=== PATIENT | female | born 1990 | race Caucasian/White ===

== ENCOUNTER 2023-09-19 10:32 | Emergency (ER) | payer OTHER, SELFPAY ==
[2023-09-19 10:38] VITALS: BP 121/71
[2023-09-19 10:58] VITALS: BMI 25.8
--- NOTE | 2023-09-19 11:00 | ED.GENMED ---
History of Present Illness
General
Chief Complaint: Problems
Source: patient
Exam Limitations: none
Time Seen by Provider: 09/19/23 10:46
Travel History
Have you had any contact with someone who has COVID-19?: No
Do you have any symptoms of coronavirus? Fever > 100 degrees, chills, cough, shortness of breath, sore throat, loss of taste or smell, muscle aches, or headache?: No
History of Present Illness
History of Present Illness:
See MDM
Past History
Past History
ED Past Medical History: None
ED Past Surgical History: None
Social History
Tobacco: Non-smoker
Alcohol: None
Phy Exam
Physical Exam
Physical Exam:
See MDM
Course
Orders/Labs/Results
Orders:
Orders
09/19/23 10:47
1st Trimester US [US 1st Trimester] Urgent
Comment:
Reason For Exam: vaginal spotting
09/19/23 10:56
Beta HCG Quantitative Urgent
Is this a screen?: No
Complete Blood Count/With Diff Urgent
Comprehensive Metabolic Panel Urgent
Urinalysis Reflex To Culture Urgent
Date Specimen was Collected: 09/19/23
Time Specimen was Collected: 10:52
Abnormal Lab Results
09/19/23
10:56
RBC 3.89 L 10^6/uL
(4.20-5.40)
Hct 34.3 L %
(37.0-47.0)
MCH 32.1 H pg
(27.0-31.0)
MPV 10.5 H fL
(7.4-10.4)
Creatinine 0.5 L mg/dL
(0.6-1.0)
09/19/23 10:56
01/20/24 10:56
Vital Signs
Initial and Last Documented VS:
Initial Vital Signs
Temp Pulse Resp BP Pulse Ox
99.8 F 81 18 121/71 99
09/19/23 10:38 09/19/23 10:38 09/19/23 10:38 09/19/23 10:38 09/19/23 10:38
Last Documented Vital Signs
Temp Pulse Resp BP Pulse Ox
99.8 F 81 18 103/62 100
09/19/23 10:38 09/19/23 10:38 09/19/23 10:38 09/19/23 11:04 09/19/23 11:15
Information
Weeks gestation: Weeks: (5)
Location: Location: ([facility])
MDM/Problems Addressed
Differential Diagnosis Includes:
HPI and MDM Narrative:
33-year-old female G1, P0 at approximately 7 weeks by last menstrual period is presenting with vaginal spotting. She noticed bright red blood when she wiped. Patient states her blood type is A+. She has OB follow-up in few weeks. She is
currently on prenatals.
We discussed early gestation and likely a negative workup but discussed the possibilities of ectopic versus early versus miscarriage.
Physical exam
General: Well appearing and non-toxic
HEENT: protecting airway
Neck: appears supple
CV: No evidence of cyanosis
Resp: No accessory muscle use
Abd: Non-distended. Soft and nontender
Extremities: No deformities
Neuro: alert
Psych: Normal affect
Skin: Intact
Problems Addressed including Acute and Chronic Conditions affecting care:
1. Vaginal bleeding in early
Acuity: acute
Prognosis: stable
Details: Will obtain beta hCG quantitative in addition to previously ultrasound
Updates
Ultrasound confirms live [facility]. Discussed return precautions and follow-up with OB
Differential Diagnosis (but not limited to): Ectopic, early , miscarriage
Testing considered: Type and screen the patient states she is A +
Drug therapy (if applicable): OTC meds, please see d/c instruction regarding Rx drugs
Amount and/or Complexity of Data Reviewed
Clinical info obtained from: Patient
External data reviewed: N/A
Labs I independently reviewed (but not limited to): Beta quant
Radiology: Ultrasound report reviewed
Pulse Ox: not hypoxic
EKG independently reviewed: N/A
Bobbin Doffer: N/A
Critical Care: N/A
Risk of Complication:
Social Determinants of health: Good social support
Discussed with other providers: N/A
Escalation of Care includes Admit/Obs: After being observed in the Emergency Department, pt stable for discharge.
Occasional wrong word or 'sound a like' substitutions may have occurred due to the inherent limitations of voice recognition software. Read the chart carefully and recognize, using context, where substitutions have occurred.
*Critical Care Note
Total Time (30-74mins, 75-104mins- exclusive of procedures): Not Applicable
ED Attending Note
-
Portions of this chart may have been created with voice recognition software.� Occasional wrong word or��sound alike� substitutions may have occurred due to the inherent limitations of voice recognition software.
Discharge Plan
Departure
Patient Disposition: Home (Routine Discharge)
Date of Disposition: 09/19/23
Time of Disposition: 13:39
Patient with high blood pressure during this ER visit?: No
Discharge Problem:
Spotting during in first trimester
Instructions: symptoms
Referrals:
Zeferino Ricardo PA-C [Family Provider] -
Activity Restrictions/Additional Instructions:
Please return for any worsening symptoms.
You may return at any time if you have further concerns.
Please follow up with your OB.
The baby is measuring 5 weeks and 4 days.
Thank you for choosing [facility].
Interventions
Interventions:
*General Assessment Last Done: 09/19/23 10:38
ED- Fall Risk Assessment Last Done: 09/19/23 11:03
*ED COVID-19 Vaccine History Last Done: 09/19/23 10:38
ED-Female Genitourinary Assessment Last Done: 09/19/23 11:03
[2023-09-19 11:04] VITALS: BP 103/62
[2023-09-19 11:12] LABS: % Basophils 0.3 % (0-2); % Eosinophils 1.6 % (0-6); % Immature Granulocytes 0.3 % (0-0.5); % Lymphocytes 24.6 % (20.5-51.1); % Monocytes 4.8 % (1.7-9.3); % Neutrophils 68.4 % (42.2-75.2); Absolute Eosinophils 0.1 10^3/uL (0-0.7); Absolute Lymphocytes 1.7 10^3/uL (1.2-3.4); Absolute Monocytes 0.3 10^3/uL (0.1-0.6); Absolute Neutrophils 4.7 10^3/uL (1.4-6.5); Hematocrit 34.3 % (37.0-47.0); Hemoglobin 12.5 g/dL (12.0-16.0); Mean Corp Hgb Conc. 36.4 g/dL (33.0-37.0); Mean Corpuscular Hgb 32.1 pg (27.0-31.0); Mean Corpuscular Volume 88.2 fL (81.0-99.0); Mean Platelet Volume 10.5 fL (7.4-10.4); Nucleated Red Blood Cells % 0 %; Platelet Count 240 10^3/uL (130-400); Red Blood Cell Count 3.89 10^6/uL (4.20-5.40); Red Cell Dist. Width 12.5 % (11.5-14.5); White Blood Cell Count 6.8 10^3/uL (4.8-10.8)
[2023-09-19 11:33] LABS: ALT (SGPT) 18 U/L (0-35); AST (SGOT) 18 U/L (14-36); Albumin 4.6 g/dl (3.5-5.0); Alkaline Phosphatase 50 U/L (38-126); Blood Urea Nitrogen 7 mg/dl (7-17); Calcium 9.5 mg/dl (8.4-10.2); Carbon Dioxide 28 mmol/L (22-30); Chloride 105 mmol/L (98-107); Estimated Creatinine Clearance 117 ml/min; Glucose 97 mg/dl (70-99); Potassium 3.9 mmol/L (3.5-5.1); Sodium 138 mmol/L (135-145); Total Bilirubin 0.7 mg/dl (0.2-1.3); Total Protein 7.3 g/dl (6.3-8.2); eGFR > 60.00
[2023-09-19 12:08] LABS: Urine Albumin Negative (Neg - Trace); Urine Bilirubin Negative (Negative); Urine Character Clear (Clear); Urine Color Yellow; Urine Glucose Negative (Negative); Urine Ketone Negative (Negative); Urine Leukocyte Negative (Negative); Urine Nitrite Negative (Negative); Urine Occult Blood Negative (Negative); Urine Urobilinogen Negative (Neg - 1+)
== END 2023-09-19 13:48 | disposition home or self-care (01) ==
LOC: EMR 10:32
PROVIDERS: EMERGENCY PHYSICIAN Student in an Organized Health Care Education/Training Program; FAMILY PHYSICIAN Physician Assistant Medical
DX: O20.9 Hemorrhage in early pregnancy, unspecified (principal); Z3A.01 Less than 8 weeks gestation of pregnancy
CPT/HCPCS: 99284; 76801; 80053; 81003; 84702; 85025

== ENCOUNTER → 2023-10-27 08:14 | Outpatient (REF) | payer OTHER, SELFPAY | LOC: PNTC 08:14 | PROVIDERS: ATTENDING PHYSICIAN Obstetrics & Gynecology | DX: Z36.0 Encounter for antenatal screening for chromosomal anomalies (principal); Z36.82 Encounter for antenatal screening for nuchal translucency | CPT/HCPCS: 76801; 76813 ==

== ENCOUNTER → 2024-03-15 07:01 | Outpatient (REF) | payer OTHER, SELFPAY | LOC: PNTC 07:01 | PROVIDERS: ATTENDING PHYSICIAN Obstetrics & Gynecology | DX: O98.513 Other viral diseases complicating pregnancy, third trimester (principal) | CPT/HCPCS: 76816 ==

== ENCOUNTER 2024-04-28 09:11 | Emergency (ER) | payer OTHER, SELFPAY ==
[2024-04-28 09:11] VITALS: BP 105/81
[2024-04-28 11:04] VITALS: BMI 29.8
--- NOTE | 2024-04-28 11:27 | ED.GENMED ---
History of Present Illness
General
Chief Complaint: DVT/Possible Blood Clot
Time Seen by Provider: 04/28/24 10:51
History of Present Illness
History of Present Illness:
Patient is a 34-year-old woman who is currently 39 weeks presenting to the emergency department with calf pain. Patient states that yesterday she developed right-sided calf pain. She states that it feels good cramp in her muscle. This is
never happened to her before. She went to her OB this morning who told her to come to the emergency department to rule out DVT. She does state that occasionally she had difficulty breathing but notices more when she lies flat. No pleuritic chest
pain. She does not have any difficulty breathing right now. No nausea no vomiting. No vaginal bleeding or cramping. is going well. Has been trying to stay hydrated. She does take vitamin supplements.
Past History
Past History
ED Past Medical History: None
ED Past Surgical History: None
Social History
Tobacco: Non-smoker
Alcohol: None
Phy Exam
Physical Exam
Physical Exam:
GENERAL: in no acute distress
HEENT: normocephalic, extraocular movements intact, moist oral mucosa
NECK: normal inspection
RESPIRATORY: no respiratory distress, clear to auscultation bilaterally
CARDIOVASCULAR: regular rate and rhythm
ABDOMEN/: soft, non-distended, non-tender to palpation, no rebound or guarding
EXTREMITIES: Right calf tender however no swelling or skin changes, distal pulses intact
NEUROLOGIC: awake and alert, moves all extremities
SKIN: warm
Course
Orders/Labs/Results
Orders:
Orders
04/28/24 09:14
Periph Venous Lwr Ext Rt US [US Periph Venous LOWER Ext RT] Urgent
Comment: 39 weeks
Reason For Exam: calf pain
Vital Signs
Initial and Last Documented VS:
Initial Vital Signs
Temp Pulse Resp BP Pulse Ox
98.1 F 92 20 105/81 97
04/28/24 09:11 04/28/24 09:11 04/28/24 09:11 04/28/24 09:11 04/28/24 09:11
Last Documented Vital Signs
Temp Pulse Resp BP Pulse Ox
98.1 F 92 20 105/81 97
04/28/24 09:11 04/28/24 09:11 04/28/24 09:11 04/28/24 09:11 04/28/24 09:11
MDM/Problems Addressed
Differential Diagnosis Includes:
34-year-old woman who is currently 39 weeks presenting to the emergency department to rule out DVT. Vitals are unremarkable and exam does show some right-sided calf tenderness but no swelling. Will rule out DVT with ultrasound. Could be
related to dehydration. Unlikely to be PE as patient is not tachycardic or hypoxic and no clinical signs or symptoms of DVT. I did encourage patient to increase fluid intake.
*Critical Care Note
Total Time (30-74mins, 75-104mins- exclusive of procedures): Not Applicable
Update Note
Update Note:
DVT study negative. Patient updated on this finding. If Pain remains or symptoms worsen patient recommended to get repeat ultrasound on outpatient basis. Strict return precautions given. Will discharge at this time.
ED Attending Note
-
Portions of this chart may have been created with voice recognition software.� Occasional wrong word or��sound alike� substitutions may have occurred due to the inherent limitations of voice recognition software.
Discharge Plan
Departure
Patient Disposition: Home (Routine Discharge)
Date of Disposition: 04/28/24
Time of Disposition: 11:42
Patient with high blood pressure during this ER visit?: No
Discharge Problem:
Calf pain
Referrals:
Madelyn Krishnan PA-C [Family Provider] -
Activity Restrictions/Additional Instructions:
You were seen in the Emergency Department today for calf pain. While you were here we performed an ultrasound which was negative. If you continue to have calf pain you can get a repeat ultrasound done in about 5 to 7 days. Please discuss this with
your primary care doctor.
We would like for you to follow up with your primary care physician for further evaluation. If you experience fever, worsening of your symptoms, or develop any other new or concerning symptoms, please return to the Emergency Department immediately.
Please see the attached sheet for additional information.
Interventions
Interventions:
*Risk Screen - Suicide Last Done: 04/28/24 11:04
*General Assessment Last Done: 04/28/24 11:04
*Neglect/Abuse Screening Last Done: 04/28/24 11:04
ED- Fall Risk Assessment Last Done: 04/28/24 11:04
*ED COVID-19 Vaccine History Last Done: 04/28/24 11:04
ED- Cardiac Assessment Last Done: 04/28/24 11:04
ED- Pulmonary Assessment Last Done: 04/28/24 11:04
ED-Skin Assessment Last Done: 04/28/24 11:04
Discharge Date and Time
Print Language: [id number]
== END 2024-04-28 11:54 | disposition home or self-care (01) ==
LOC: EMR 09:11
PROVIDERS: EMERGENCY PHYSICIAN Student in an Organized Health Care Education/Training Program; FAMILY PHYSICIAN Physician Assistant
DX: O26.893 Other specified pregnancy related conditions, third trimester (principal); Z3A.39 39 weeks gestation of pregnancy; M79.661 Pain in right lower leg; R06.00 Dyspnea, unspecified
CPT/HCPCS: 99284; 93971

== ENCOUNTER → 2024-05-12 08:54 | Outpatient (REF) | payer OTHER, SELFPAY | LOC: PNTC 08:54 | PROVIDERS: ATTENDING PHYSICIAN Obstetrics & Gynecology | DX: O48.0 Post-term pregnancy (principal) | CPT/HCPCS: 59025; 76815 ==

== ENCOUNTER 2024-05-19 19:25 | Inpatient (IN) | payer OTHER, SELFPAY ==
[2024-05-19 19:54] VITALS: BP 117/75; BMI 31.3
[2024-05-19 19:59] LABS: % Basophils 0.2 % (0-2); % Eosinophils 0.5 % (0-6); % Immature Granulocytes 0.3 % (0-0.5); % Lymphocytes 19.6 % (20.5-51.1); % Monocytes 6.5 % (1.7-9.3); % Neutrophils 72.9 % (42.2-75.2); Absolute Eosinophils 0.1 10^3/uL (0-0.7); Absolute Lymphocytes 1.8 10^3/uL (1.2-3.4); Absolute Monocytes 0.6 10^3/uL (0.1-0.6); Absolute Neutrophils 6.8 10^3/uL (1.4-6.5); Hemoglobin 12.3 g/dL (12.0-16.0); Mean Corp Hgb Conc. 35.1 g/dL (33.0-37.0); Mean Corpuscular Hgb 32.9 pg (27.0-31.0); Mean Corpuscular Volume 93.6 fL (81.0-99.0); Nucleated Red Blood Cells % 0 %; Platelet Count 152 10^3/uL (130-400); Red Blood Cell Count 3.74 10^6/uL (4.20-5.40); Red Cell Dist. Width 12.7 % (11.5-14.5); White Blood Cell Count 9.3 10^3/uL (4.8-10.8)
[2024-05-19] MEDS: CYTOTEC 25 MICROGRAM VAG (20:16)
[2024-05-20] MEDS: CYTOTEC 50 MICROGRAM PO ×2 (00:33→06:32)
[2024-05-20] MEDS: LR 1000 IV (11:23)
[2024-05-20] MEDS: PITOCIN 30 UNITS/NSS 500 ML IV ×3 (11:23→22:22)
[2024-05-20] MEDS: SUBLIMAZE 100 MCG EPIDURAL (13:56)
[2024-05-20] MEDS: FENTANYL/BUPIVACAINE 100 EPIDURAL (13:56)
[2024-05-20] MEDS: XYLOCAINE-MPF 1% VIAL 30 ML INFIL (20:49)
[2024-05-20] MEDS: HEMABATE 250 MCG IM (21:35)
[2024-05-20] MEDS: TRANEXAMIC ACID 100 IV (21:47)
[2024-05-20] MEDS: CYTOTEC 800 MCG RECTAL (21:53)
[2024-05-20] MEDS: MOTRIN 600 MG PO (22:10)
[2024-05-20] MEDS: TYLENOL 650 MG PO (22:11)
[2024-05-20 22:36] LABS: Hematocrit 34.3 % (37.0-47.0); Hemoglobin 12.3 g/dL (12.0-16.0); Mean Corp Hgb Conc. 35.9 g/dL (33.0-37.0); Mean Corpuscular Hgb 32.4 pg (27.0-31.0); Mean Corpuscular Volume 90.3 fL (81.0-99.0); Mean Platelet Volume 12.1 fL (7.4-10.4); Platelet Count 162 10^3/uL (130-400); Red Cell Dist. Width 12.8 % (11.5-14.5); White Blood Cell Count 20.2 10^3/uL (4.8-10.8)
[2024-05-20] MEDS: ZOFRAN 4 MG IV (22:46)
[2024-05-21 05:13] LABS: Hematocrit 32.4 % (37.0-47.0); Hemoglobin 11.6 g/dL (12.0-16.0)
[2024-05-21] MEDS: SENOKOT-S 1 TABLET PO (09:33)
[2024-05-21] MEDS: MOTRIN 600 MG PO ×2 (09:33→18:09)
[2024-05-21] MEDS: PRENATAL PLUS 1 TABLET PO (09:33)
[2024-05-22] MEDS: MOTRIN 600 MG PO ×2 (00:22→08:57)
[2024-05-22] MEDS: SENOKOT-S 1 TABLET PO (08:57)
[2024-05-22] MEDS: PRENATAL PLUS 1 TABLET PO (08:57)
[2024-05-24 15:22] LABS: Syphilis/T. pallidum Ab Reflex Negative (Negative)
== END 2024-05-22 02:30 | disposition home or self-care (01) | DRG 806 ==
LOC: LDRP 19:25
PROVIDERS: Obstetrics & Gynecology; ADMITTING PHYSICIAN Student in an Organized Health Care Education/Training Program; ATTENDING PHYSICIAN Obstetrics & Gynecology
PROC: 3E023GC Introduction of Other Therapeutic Substance into Muscle, Percutaneous Approach (ICD-10-PCS; 2024-05-20)
PROC: 10E0XZZ Delivery of Products of Conception, External Approach (ICD-10-PCS; 2024-05-20)
PROC: 3E0P7VZ Introduction of Hormone into Female Reproductive, Via Natural or Artificial Opening (ICD-10-PCS; 2024-05-20)
PROC: 0KQM0ZZ Repair Perineum Muscle, Open Approach (ICD-10-PCS; 2024-05-20)
PROC: 0UQG7ZZ Repair Vagina, Via Natural or Artificial Opening (ICD-10-PCS; 2024-05-20)
DX: O48.0 Post-term pregnancy (principal); O72.1 Other immediate postpartum hemorrhage; Z37.0 Single live birth; Z3A.41 41 weeks gestation of pregnancy; O70.1 Second degree perineal laceration during delivery
CPT/HCPCS: 36415; 85014; 85018; 85025; 85027; 86780; 86850; 86900; 86901

== ENCOUNTER → 2025-04-03 07:47 | Outpatient (REF) | payer OTHER, SELFPAY | LOC: PNTC 07:47 | PROVIDERS: ATTENDING PHYSICIAN Obstetrics & Gynecology | DX: Z36.0 Encounter for antenatal screening for chromosomal anomalies (principal); Z36.82 Encounter for antenatal screening for nuchal translucency | CPT/HCPCS: 76801; 76813 ==